=== PATIENT | female | born 1940 | race Caucasian/White ===

== ENCOUNTER 2017-10-21 14:19 | Inpatient (IN) | payer MEDICARE, OTHER ==
[2017-10-21] MEDS ORDERED: AL HYDROX/MAG HYDROX 30ML UD PO PRN (15:14)
[2017-10-21] MEDS ORDERED: ACETAMINOPHEN 325 MG TAB PO PRN (15:21)
[2017-10-21] MEDS ORDERED: BISACODYL 10 MG SUPP RC PRN (16:00)
[2017-10-21] MEDS ORDERED: ONDANSETRON 4 MG ODT TABLET SL PRN (16:00)
[2017-10-21] MEDS ORDERED: HYDROCODONE/APAP 10/325 TABLET PO PRN (16:00)
[2017-10-21] MEDS: CYCLOBENZAPRINE 10MG TABLET PO SCH ×2 (16:40→21:17)
[2017-10-21] MEDS: FUROSEMIDE 20 MG TABLET PO SCH (16:41)
[2017-10-21] MEDS: DAPTOMYCIN 500 MG/VIAL IV SCH (18:34)
[2017-10-21] MEDS: ERTAPENEM SODIUM 1 G in 0.9 % SODIUM CHLORIDE 100ML 100 ML IV SCH (18:35)
[2017-10-21] MEDS: DOCUSATE SODIUM 100 MG CAPSULE PO SCH (21:17)
[2017-10-21] MEDS: PRAMIPEXOLE DI-HCL 0.25 MG TABLET PO SCH (21:17)
[2017-10-21] MEDS: MONTELUKAST SODIUM 10MG TABLET PO SCH (21:17)
[2017-10-21] MEDS: VENLAFAXINE ER 75 MG CAPSULE PO SCH (21:17)
[2017-10-21] MEDS: SYMBICORT 160/4.5 INH SCH (22:13)
[2017-10-21] MEDS: GUAIFENESIN 600 MG TABCR PO SCH (23:20)
[2017-10-22] MEDS: HYDROCODONE/APAP 10/325 TABLET PO PRN ×2 (03:32→21:23)
[2017-10-22] MEDS: PANTOPRAZOLE SODIUM 40 MG TABLET PO SCH (06:26)
[2017-10-22] MEDS: LEVOTHYROXINE SODIUM 75 MCG TABLET PO SCH (06:26)
[2017-10-22 06:55] LABS: BASO % 0.3 % (0-6); EOS % 4.7 % (0-6); GRAN % 74.5 % (47-80); HEMATOCRIT 24.1 % (35.0-47.0); HEMOGLOBIN 7.3 gm/dl (11.6-16.0); MEAN CELL VOLUME 104.8 fl (81-97); MEAN CORPUSCULAR HEMOGLOBIN 31.7 pg (27-33); MEAN CORPUSCULAR HGB CONC 30.3 g/dl (32-36); MEAN PLATELET VOLUME 8.2 fl (7.4-10.4); MONO % 8.5 % (0-9); PLATELET COUNT 466 K/uL (130-400); RED CELL DISTRIBUTION WIDTH 13.7 % (11.5-14.5); WHITE BLOOD COUNT W/O DIFF 10.3 K/uL (4.2-12.2)
[2017-10-22 07:16] LABS: ALB/GLOB RATIO 1.5 (1.1-1.8); ALBUMIN 3.2 g/dL (4.0-5.0); ALKALINE PHOSPHATASE 89 U/L (35-104); ALT/SGPT 17 U/L (<33); AST/SGOT 16 U/L (10.0-35.0); BLOOD UREA NITROGEN 14 mg/dL (8-23); CREATININE 0.3 mg/dL (0.5-0.9); EST GLOMERULAR FILTRATION RATE > 60 mL/min; GLUCOSE,RANDOM 197 mg/dL (74-109); TOTAL PROTEIN 5.4 g/dL (6.6-8.7)
[2017-10-22 07:31] LABS: ERYTHROCYTE SEDIMENTATION RATE 75 mm/hr (0-30)
[2017-10-22] MEDS: MELOXICAM 7.5 MG TABLET PO SCH (08:04)
[2017-10-22] MEDS: PREDNISONE 5 MG TAB PO SCH (08:04)
[2017-10-22] MEDS: FUROSEMIDE 20 MG TABLET PO SCH ×2 (08:05→14:28)
--- NOTE | 2017-10-22 09:04 | History & Physical ---
History of Present Illness - Date Date of Service for History & Physical: 10/22/17 - History of Present Illness Admitting Diagnosis: Right knee infection s/p total knee replacement; deconditioning History of Present Illness: PMH: Idiopathic interstitial lung disease requiring continuous O2 and Bipap nightly, GERD, Lupus, and fibromyalgia. Hospital course: Pt admitted into Swingbed this AM. Was seen at [facility] for R knee joint infection. Conservative options for infection management failed and underwent elective revision arthroplasty with I&D, and poly-exchange revision. She tolerated the procedure well and was started on IV abx through PICC line for infection management and narcotics orally for pain control. She was tolerating PT/ OT on POD 2 and transferred to [facility] for [place]. Today: the patient has no complaints. Feels like her pain is controlled. General - Cognitive Patterns Speech: Normal Thought Process: Intact Thought Content: Normal Orientation: Oriented x3 - Communication Preferred Language?: Arabic Dean Of Education Required: No Level of Education: High School Preferred Method of Learning: Seeing, Doing Comprehension Ability: No Impairment Able to Read: Yes Able to Write: Yes Select best description of speech pattern: Clear Speech Ability to express ideas and wants: Understood Understanding verbal content: Understands - Mood and Behavior Patterns Appearance: Disheveled Mood: Normal Attitude: Cooperative Motor Activity: Calm Affect: Appropriate - Psychosocial Well-Being Usual Living Arrangement: Spouse - Physical Functioning Activity Level: Up with assist x1 Turning: With partial assist ROM Ability: Moves all extremities Assistive Devices: 2 Wheel Walker Ambulation Ability: Needs Assist Bed Mobility: Needs Assist Transfer Ability: Needs Assist Bathing Ability: Needs Assist Personal Hygiene: Needs Assist Dressing Ability: Needs Assist Eating (Feeding) Ability: Independent Toileting Ability: Needs Assist Administer Own Medication: Independent - Continence Bowel Pattern: Diarrhea Bladder Pattern: Normal - Dental Status Unable to examine: No Broken or loosely fitting full or partial dentures: No No natural teeth or tooth fragment(s) (edentulous): No Abnormal mouth tissue (ulcers, masses, oral lesions, etc.): No Obvious or likely cavity or broken natural teeth: No Inflamed or bleeding gums or loose natural teeth: No Mouth/facial pain, discomfort or difficulty chewing: No - Nutrition Screening Poor oral intake > 1 week: No Unplanned weight loss in specified time frame: No Nutrition Support via tube feedings or parenteral nutrition: No Pressure Ulcer: No Significantly underweight define as BMI <18.5 kg/m2: No Albumin <2.5mg/dL: No Persistent nausea/vomiting/diarrhea >3 days: No Difficulty chewing/swallowing/mouth sores: No Admitting Diagnosis: No Nutrition Risk Score: Low Risk Review of Systems Constitutional: Denies: Chills, Fever Eyes: Denies: Eye discharge, Eye pain, Vision change ENT: Denies: Congestion Respiratory: Reports: Wheezes. Denies: Cough, Dyspnea Cardiovascular: Reports: Edema, Murmurs (chronic). Denies: Chest pain, Palpitations Endocrine: Denies: Polyuria Gastrointestinal: Denies: Abdominal pain, Constipation, Diarrhea, Nausea, Vomiting Genitourinary: Denies: Dysuria Musculoskeletal: Reports: Arthralgia, Back pain Skin: Reports: Bruising Neurological: Reports: Vertigo (chronic). Denies: Confusion Psychiatric: Denies: Depression Hematological/Lymphatic: Reports: Anemia Past Medical History - SOCIAL HISTORY Smoking Status: Never smoker Alcohol Use: None - SURGICAL HISTORY Past Surgical History: left total knee - RESPIRATORY Hx Respiratory Disorders: Yes Hx COPD: No Hx Sleep Apnea: Yes Hx of CPAP: No (Bipap) Comment:: Idiopathic interstitial lung disease - CARDIOVASCULAR Hx Cardio Disorders: Yes Comment:: murmur - NEURO Hx Neuro Disorders: No - GI Hx GI Disorders: Yes Hx Reflux: Yes Comment:: c/o dysphagia - Hx Genitourinary Disorders: Yes Hx Bladder Problem: Yes Comment:: frequency from BID Lasix - ENDOCRINE Hx Endocrine Disorders: Yes Hx Thyroid Disease: Yes - MUSCULOSKELETAL Hx Musculoskeletal Disorders: Yes Hx Arthritis: Yes Hx Fibromyalgia: Yes - PSYCH Hx Psych Problems: Yes Hx Anxiety: Yes Hx Depression: Yes - HEMATOLOGY/ONCOLOGY Hx Hematology/Oncology Disorders: No Hx Blood Transfusions: Yes Family Medical History Any Significant Family History?: Yes Hx Cancer: Grandparents Hx Diabetes: Mother, Grandparents Hx Heart Disease: Father, Mother, Brother/Sister Hx HTN: Father, Mother, Brother/Sister H&P Meds/Allergies - Allergies Allergies: Allergies Allergy/AdvReac Type Severity Reaction Status Date / Time acetaminophen AdvReac HIVES Verified 10/22/17 07:00 [From Darvocet-N 100] adhesive AdvReac HYPERSENSIT Verified 10/21/17 17:03 IVITY cefaclor [From Ceclor] AdvReac NAUSEA AND Verified 10/21/17 17:03 VOMITING celecoxib [From Celebrex] AdvReac HIVES Verified 10/21/17 17:03 fluticasone [From Flonase] AdvReac HIVES Verified 10/21/17 17:03 hydromorphone [From Dilaudid] AdvReac HIVES Verified 10/21/17 17:03 meperidine [From Demerol] AdvReac HIVES Verified 10/21/17 17:03 nafcillin AdvReac HIVES Verified 10/21/17 17:03 propoxyphene AdvReac HIVES Verified 10/21/17 17:03 [From Darvocet-N 100] quinine AdvReac HIVES Verified 10/21/17 17:03 Sulfa (Sulfonamide AdvReac HIVES Verified 10/21/17 17:03 Antibiotics) tramadol [From Ultram] AdvReac HIVES Verified 10/21/17 17:03 - Active Medications Active Medications: Current Medications Acetaminophen (Tylenol 325mg) 650 mg PO Q6H PRN PRN Reason: PAIN - MILD (1-4) Hydrocodone Bitart/Acetaminophen (Celina 10mg/325mg) 1 each PO Q4H PRN PRN Reason: PAIN - MOD TO SEVERE (5-10) Last Admin: 10/22/17 03:32 Dose: 1 each Hydrocodone Bitart/Acetaminophen (Celina 10mg/325mg) 2 each PO Q4H PRN PRN Reason: PAIN - SEVERE (8-10) Al Hydroxide/Mg Hydroxide (Maalox) 30 ml PO Q4H PRN PRN Reason: GI UPSET Aspirin (Aspirin Chewable) 81 mg PO DAILY JOVANA Bisacodyl (Dulcolax) 10 mg RC DAILY PRN PRN Reason: CONSTIPATION Cyclobenzaprine HCl (Flexeril) 10 mg PO TID [facility] Last Admin: 10/21/17 21:17 Dose: 10 mg Daptomycin (Cubicin) 500 mg IV Q24H [facility] Stop: 10/26/17 19:01 Last Admin: 10/21/17 18:34 Dose: 500 mg Docusate Sodium (Colace) 100 mg PO BID [facility] Last Admin: 10/21/17 21:17 Dose: Not Given Enoxaparin Sodium (Lovenox) 40 mg SQ DAILY [facility] Furosemide (Lasix) 20 mg PO BIDDIUR [facility] Last Admin: 10/22/17 08:05 Dose: 20 mg Guaifenesin (Mucinex) 600 mg PO BID [facility] Last Admin: 10/21/17 23:20 Dose: Not Given Ertapenem 1 g/ Sodium Chloride 100 mls @ 100 mls/hr IV Q24H [facility] Last Infusion: 10/21/17 19:36 Dose: Infused Levothyroxine Sodium (Synthroid) 75 mcg PO DAILYTHY [facility] Last Admin: 10/22/17 06:26 Dose: 75 mcg Melatonin (Melatonin) 15 mg PO QHS PRN PRN Reason: SLEEP Meloxicam (Mobic) 15 mg PO DAILYWM [facility] Last Admin: 10/22/17 08:04 Dose: 15 mg Montelukast Sodium (Singulair) 10 mg PO QHS [facility] Last Admin: 10/21/17 21:17 Dose: 10 mg Multivitamins/Minerals (Centrum) 1 tab PO DAILY [facility] Ondansetron HCl (Zofran Odt) 4 mg SL Q6H PRN PRN Reason: NAUSEA/VOMITING Pantoprazole Sodium (Protonix) 40 mg PO DAILYAC [facility] Last Admin: 10/22/17 06:26 Dose: 40 mg Symbicort 160/4.5 2 each INH BID [facility] Last Admin: 10/21/17 22:13 Dose: 2 each Pramipexole Dihydrochloride (Pramipexole Dihydrochloride) 0.75 mg PO BID [facility] Last Admin: 10/21/17 21:17 Dose: 0.75 mg Prednisone (Prednisone 5mg) 15 mg PO DAILYWM [facility] Last Admin: 10/22/17 08:04 Dose: 15 mg Venlafaxine HCl (Effexor Xr) 75 mg PO BID [facility] Last Admin: 10/21/17 21:17 Dose: 75 mg Physical Exam - Vital Signs Vital Signs: Vital Signs - Last 24 Hrs Temp Pulse Pulse Resp BP Pulse Ox 10/22/17 08:00 97.3 F L 80 18 121/77 94 L 10/21/17 22:27 110 H 20 99 10/21/17 22:09 106 H 18 99 10/21/17 20:00 98.6 F 90 16 115/72 96 10/21/17 16:20 97.9 F 95 H 16 121/55 92 L - General General Appearance: Alert, Oriented x3, Cooperative, No acute distress - Head Head exam: Atraumatic, Normocephalic - Eye Eye exam: Normal appearance, EOMI. negative: Conjunctival injection, Periorbital swelling, Periorbital tenderness - ENT ENT exam: Mucous membranes moist, Normal external ear exam Nasal Exam: Normal inspection Mouth exam: Normal external inspection - Neck Neck exam: Normal inspection - Respiratory Respiratory exam: Wheezes (left lower lung field) - Cardiovascular Cardiovascular Exam: Regular rate, Systolic murmur (chronic, holosystolic grade 2/4 heard throughout ) Peripheral Pulses: 2+: Radial (R), Radial (L) - GI/Abdominal GI/Abdominal exam: Soft, Normal bowel sounds, Hernia (chronic). negative: Distended, Hypoactive bowel sounds, Tenderness - Rectal Rectal exam: Deferred - exam: Deferred - Extremities Extremities exam: Pedal edema (R sided edema of the entire LE 3+. Wrapped to compress. Wound intact and dry. Ecchymosis present on the inner thigh and around the incision. ), Tenderness (mild tenderness when assessing for LE edema on the R) - Back Back exam: Reports: Other (ecchymosis in the central lower back. ) - Neurological Neurological exam: Alert, Oriented X3 - Psychiatric Psychiatric exam: Normal mood - Skin Type of lesion: Other (ecchymosis seen on the hands and arms b/l) H&P Results - Labs Result Diagrams: 10/22/17 06:47 10/22/17 06:47 Labs Last 24 Hours: Laboratory Results - last 24 hr 10/22/17 10/22/17 06:47 06:47 WBC 10.3 RBC 2.30 L Hgb 7.3 L Hct 24.1 L MCV 104.8 H MCH 31.7 MCHC 30.3 L RDW 13.7 Plt Count 466 H MPV 8.2 Gran % 74.5 Lymphocytes % 12.0 L Monocytes % 8.5 Eosinophils % 4.7 Basophils % 0.3 ESR 75 H Sodium 139 Potassium 4.1 Chloride 90 L Carbon Dioxide 42.0 H Anion Gap 7.0 BUN 14 Creatinine 0.3 L Estimated GFR > 60 Random Glucose 197 H Calcium 8.7 L Total Bilirubin 0.20 AST 16 ALT 17 Alkaline Phosphatase 89 Total Protein 5.4 L Albumin 3.2 L Globulin 2.2 Albumin/Globulin Ratio 1.5 Discharge Potential - Discharge Needs Community Services Used Prior to Admission: Oxygen Therapy, Transportation, Path[facility] to Better [facility] Patient Discharge Plan Description: Return Home Community Services Needed at Discharge: Oxygen Therapy, Transportation, [facility]ways to Better Health Plan - Swing Bed Certification Initial Certification Due: 10/21/17 14 Day Re-Cert Due: 11/04/17 44 Day Re-Cert Due: 12/04/17 74 Day Re-Cert Due: 01/03/18 - Detailed Diagnosis and Plan (1) Physical deconditioning Plan: PT/OT on board. Continue per recs and as tolerated. Current Visit: Yes Status: Acute Base Code: R53.81 - OTHER MALAISE (2) Infection of total right knee replacement Plan: - Continue abx as prescribed. Will monitor for worsening of infection. Pain control as prescribed. - Hb 7.3 Will monitor for need of transfusion. Current Visit: Yes Status: Acute Base Code: T84.53XA - INFECT/INFLM REACTION DUE TO INTERNAL R KNEE PROSTH, INIT (3) Idiopathic interstitial pulmonary disease Plan: - CO2 elevated today. - Pt states that she used her Bipap last night. - Her O2 NC during the day has been 2-3L and O2 sats >96%, this is likely decreasing her respiratory drive and she is retaining CO2. - Decreased O2 to 1L and keep saturation between 88-92% - Will repeat CO2 in AM and monitor closely. - No signs of infection or CXR warranted at this time. - Dr. Buchanan is her business dean will contact as needed. - Resp on board. Albuteral and Symbicort as prescribed. Prednisone as prescribed. 10/22/17 10:09 10/22/17 10:10 Current Visit: Yes Status: Acute Base Code: J84.9 - INTERSTITIAL PULMONARY DISEASE, UNSPECIFIED (4) GERD with esophagitis Plan: - Protonix as prescribed. Current Visit: Yes Status: Acute Base Code: K21.0 - GASTRO-ESOPHAGEAL REFLUX DISEASE WITH ESOPHAGITIS - Disposition Home in 4 weeks if tolerated.
[2017-10-22] MEDS ORDERED: ALBUTEROL HFA 8 GM INHALER INH PRN (09:15)
[2017-10-22] MEDS: MULTIVITAMINS/MINERALS TABLET PO SCH (09:20)
[2017-10-22] MEDS: ASPIRIN 81 MG CHEWABLE TABLET PO SCH (09:20)
[2017-10-22] MEDS: DOCUSATE SODIUM 100 MG CAPSULE PO SCH ×2 (09:20→21:20)
[2017-10-22] MEDS: VENLAFAXINE ER 75 MG CAPSULE PO SCH ×2 (09:20→21:20)
[2017-10-22] MEDS: CYCLOBENZAPRINE 10MG TABLET PO SCH ×3 (09:21→21:20)
[2017-10-22] MEDS: GUAIFENESIN 600 MG TABCR PO SCH ×2 (09:21→21:20)
[2017-10-22] MEDS: ENOXAPARIN 40 MG/0.4 ML SYR SQ SCH (09:21)
[2017-10-22] MEDS: PRAMIPEXOLE DI-HCL 0.25 MG TABLET PO SCH ×2 (09:22→21:20)
[2017-10-22] MEDS: UMECLIDINIUM BROMIDE (INCRUSE) 62.5MCG IH SCH (09:47)
[2017-10-22] MEDS: SYMBICORT 160/4.5 INH SCH ×2 (09:47→21:50)
[2017-10-22] MEDS ORDERED: BREO (FLUTICASONE/VILANTEROL) 200MCG/25MCG INHALER INH SCH (10:00)
--- NOTE | 2017-10-22 11:06 | Rehab Evaluation ---
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 Ordered Treatment: OT Evaluate and Treat Status: Initial Evaluation Past Medical/Surgical Hx: PAST MEDICAL/SURGICAL HISTORY Past Surgical History left total knee PMH - Respiratory Hx Respiratory Disorders Yes Hx Chronic Obstructive No Pulmonary Disease (COPD) Hx Sleep Apnea Yes Hx of CPAP No: Bipap Comment: Idiopathic interstitial lung disease PMH - Cardiovascular Hx Cardiovascular Disorders Yes Hx Rheumatic Fever Yes Hx Heart Murmur Yes Comment: murmur PMH - Neuro Hx Neurological Disorders No PMH - GI Hx Gastrointestinal Disorders Yes Hx Gastroesophageal Reflux Yes Comment: c/o dysphagia PMH - Hx Genitourinary Disorders Yes Hx Bladder Problem Yes Comment: frequency from BID Lasix PMH - Endocrine Hx Endocrine Disorders Yes Hx Thyroid Disease Yes PMH - Musculoskeletal Hx Musculoskeletal Disorders Yes Hx Arthritis Yes Hx Fibromyalgia Yes PMH - Psych Hx Psychiatric Problems Yes Hx Anxiety Yes Hx Depression Yes PMH - Hematology/Oncology Hx Hematology/Oncology No Disorders Premorbid Status: Detail (Pt has been dealing with this since 2007, with multiple sx's. PLOF is prior to most recent sx and hospital stay, but after original level of functioning. 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 Pt. is modified Ind. with self-care tasks, with the exception of supervising tub t/f for safety. She has a photo equipment technician , shoe horn, and bathing tool. Pt. no longer drives; assists with transportation needs.) Social History: Detail (Pt. lives with her in a 1-story house with basement. Pt. does not use the basement, but it contains laundry facilities so takes care of laundry. House has a ramp entry. Pt. primarily uses w/c for in-home mobility at this time, but would prefer to use walker instead. Bathroom has a tub/shower with grab bar, hand held shower head, and shower chair. Toilet is raised with attached handles bilaterally.) Precautions: [place], Fall, Other (RLE WBAT, SOB) - Time With Patient Total Time Spent With Patient (Min): 30 Treatment Procedures: Detail (OT Eval Low.) Subjective Information - Subjective Information Per Patient (R hand dominant. Significant hx of multiple injuries/surgeries ( has a list that he can bring later), including L shoulder replacement, R shattered shoulder, and fibromyalgia.) Objective Data - Pain Pain Present: Yes (09/10 RLE with activity. Generalized burning pain throughout body d/t fibromyalgia.) - Mental Status Patient Orientation: Oriented x3 - Visual Perception Appears within normal limits for therapeutic activities - ROM Within normal limits (BUE WFL all planes. Lacking some motion in bilateral shoulder flex, but pt. was able to functionally reach up, behind head, and back. ) - Strength/Tone Within normal limits (BUE shd flex, abd, biceps, triceps 4+/5 MMT. Strength feels equal bilaterally. May have decreased rn anesthetist strength d/t sensation.) - Coordination Deficit (Significant difficulty w/ FMC d/t decreased sensation. Pt. is unable to put in earrings, open water bottles, and has difficulty with clothing fasteners.) - Bed Mobility Independent (sit to supine with bed flat and no rails) - Transfers Needs Assist (CGA-Min assist sit<>stand t/f's) - Balance Balance Sitting: Fair (Pt. leans significantly posteriorly when reaching up, which greatly increases fall risk.) Balance Standing: Fair - Sensation Deficit (Diminished light touch bilateral median nerve pattern on fingertips. Pt. also named several false positives which may be d/t fibromyalgia and/or decreased sense of proprioception. Pt. reported hand numbness sometimes worsens with use of wheelchair. Educ. was provided in awareness of safety precautions d/ t decreased sensation. Pt. verbalized understanding.) - ADL's/IADL's Detail (ADL's not tested at this time d/t pt's high pain, low endurance, and SOB. Pt. does have clothes available to dress with, and is an early riser. Pt. has very low activity tolerance, and became severely SOB after walking a few steps from arm chair to bed with use of 2 L oxygen. Pt. Ind. initiated use of pursed lip breathing techniques. Pt. reported she must walk a long distance to the bathroom from her bedroom or to the kitchen when at home.) Therapy Assessment - Therapy Assessment Detail (Pt. would benefit from skilled OT services to maximize independence and safety with ADL's.) Patient Education - Patient Education Teaching Topic: Other (safety d/t decreased hand sensation) Response: Verbalize Understanding Teaching Method: Discussion Teaching Recipient: Patient Barriers To Learning: None Problem List - Problem List Occupational Therapy Problem List: Detail (SOB, decreased activity tolerance/ endurance, decreased safety and Ind. with ADL's, impaired FMC and sensation in Bilateral hands) Goals - Goals Occupational Therapy Goals: 1) Pt. will participate in dressing and shower evaluation to further assess needs. 2) Pt. will improve activity tolerance to complete typical morning ADL routine (i.e. participate for 10 minutes with seated rest breaks as needed and use of oxygen). 3) Pt. will dress TB modified Ind. 4) Pt. will toilet with modified Ind. 5) Pt. will safely complete a tub t /f with CGA as needed by caregiver (i.e. ). 6) Pt. will demo. awareness of adaptations or modifications to prevent increased hand numbness with use of w /c or walker. Prognosis - Prognosis Good (For written goals with pt. participation.) Plan - Plan Occupational Therapy Plan: Pt. will be seen 2-4x's/week Mon-Fri during rehab business hours until pt. has met OT goals and/or is d/c from the hospital.
--- NOTE | 2017-10-22 11:35 | Rehab Evaluation ---
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 Ordered Treatment: PT Evaluate and Treat Status: Initial Evaluation Past Medical/Surgical Hx: PAST MEDICAL/SURGICAL HISTORY Past Surgical History left total knee PMH - Respiratory Hx Respiratory Disorders Yes Hx Chronic Obstructive No Pulmonary Disease (COPD) Hx Sleep Apnea Yes Hx of CPAP No: Bipap Comment: Idiopathic interstitial lung disease PMH - Cardiovascular Hx Cardiovascular Disorders Yes Hx Rheumatic Fever Yes Hx Heart Murmur Yes Comment: murmur PMH - Neuro Hx Neurological Disorders No PMH - GI Hx Gastrointestinal Disorders Yes Hx Gastroesophageal Reflux Yes Comment: c/o dysphagia PMH - Hx Genitourinary Disorders Yes Hx Bladder Problem Yes Comment: frequency from BID Lasix PMH - Endocrine Hx Endocrine Disorders Yes Hx Thyroid Disease Yes PMH - Musculoskeletal Hx Musculoskeletal Disorders Yes Hx Arthritis Yes Hx Fibromyalgia Yes PMH - Psych Hx Psychiatric Problems Yes Hx Anxiety Yes Hx Depression Yes PMH - Hematology/Oncology Hx Hematology/Oncology No Disorders Premorbid Status: Detail (Pt has been dealing with this since 2007, with multiple sx's. PLOF is prior to most recent sx and hospital stay, but after original level of functioning. Pt. is responsible for shared nib finisher as she is able, such as: occasional basic meal prep, cleaning bathroom, replacing waste basket bags, etc. Pt. is modified Ind. with self-care tasks, with the exception of supervising tub t/f for safety. She has a digital asset coordinator , shoe horn, and bathing tool. Pt. no longer drives; assists with transportation needs.) Social History: Detail (Pt. lives with her in a 1-story house with basement. Pt. does not use the basement, but it contains laundry facilities so takes care of laundry. House has a ramp entry. Pt. primarily uses w/c for in-home mobility at this time, but would prefer to use walker instead. Bathroom has a tub/shower with grab bar, hand held shower head, and shower chair. Toilet is raised with attached handles bilaterally.) Precautions: [place], Fall, Other (RLE WBAT, SOB, Contace isolation) - Time With Patient Total Time Spent With Patient (Min): 30 Treatment Procedures: Detail (Initial Evaluation) Subjective Information - Subjective Information Per Patient (The patient has complaints of R knee pain which at rest she rated as 3 to 4 using 0-10 pain scale. She also stated she has fibromylagia pain "all over" at times which she characterizes as a burning type of pain.) Objective Data - Mental Status Patient Orientation: Oriented x3 - Visual Perception Appears within normal limits for therapeutic activities - ROM Not within normal limits (The patient's LE AROM was WFL except for R knee flexion 85 degrees ( limitations may be due to dressing) extension was not assessed due to dressing. Refer to OT not for AROM assessment.) - Strength/Tone Not within normal limits ( The patient's L LE strength was 5/5, R LE strength was hip musculature 4+/5,ankle musculature 4+/5, knee extensors 3/5 ( pain with resistance), knee flexors 4-/5. Refer to OT note for evaluation of UE strength.) - Bed Mobility Independent (The patient was independent with supine to and from sit transfer and scooting up in bed.) - Transfers Independent (The patient required CG/minimal PA with sit to stand and was independent with stand to sit.) - Balance Balance Sitting: Good Balance Standing: Fair (The patient stood with WBAT on the R LE and required support of walker) - Gait Detail (The patient ambulated with 2 wheeled walker with CG for safety WBAT on the R LE and 2L of O2 , 8 feet x 1. The patient experienced shortness of breath after ambulated. The patient used proper pursed lip breathing techniques. ) Problem List - Problem List Physical Therapy Problem List: Detail (1)Decreased R LE strength 2) R LE pain which limited patient's functional ability 3) Shortness of breath with physical activity 4)The patient will able with assistive device a distance of 50 to 100 feet independently with minimal shortness of breath 5) The patient will be able to complete a car transfer into van with assist of .) Prognosis - Prognosis Moderate Plan - Plan Physical Therapy Plan: PT 1-2 times a day M-F for gait training, transfer training, LE strengthening and endurance exercises.
--- NOTE | 2017-10-22 11:53 | Physician Addendum ---
Addendum (Physician) Spoke with Pt's candlemaker Dr. Buchanan. He states that it doesn't surprise him that the pt's CO2 is elevated that high given her hx of severe interstitial lung disease and states that likely it will progressively get worse. He states that she refused medical treatment for the condition and is unsure regarding her compliance with her bipap at night and her daytime O2. Will continue to monitor.
[2017-10-22] MEDS: DAPTOMYCIN 500 MG/VIAL IV SCH (18:30)
[2017-10-22] MEDS: ERTAPENEM SODIUM 1 G in 0.9 % SODIUM CHLORIDE 100ML 100 ML IV SCH (20:05)
[2017-10-22] MEDS: MONTELUKAST SODIUM 10MG TABLET PO SCH (21:21)
[2017-10-22] MEDS: MELATONIN 5 MG TABLET PO PRN (21:22)
[2017-10-23] MEDS: LEVOTHYROXINE SODIUM 75 MCG TABLET PO SCH (06:00)
[2017-10-23] MEDS: PANTOPRAZOLE SODIUM 40 MG TABLET PO SCH (06:00)
[2017-10-23 07:12] LABS: ALB/GLOB RATIO 1.4 (1.1-1.8); ALBUMIN 3.7 g/dL (4.0-5.0); ALKALINE PHOSPHATASE 105 U/L (35-104); ALT/SGPT 20 U/L (<33); AST/SGOT 18 U/L (10.0-35.0); BLOOD UREA NITROGEN 19 mg/dL (8-23); CREATININE 0.3 mg/dL (0.5-0.9); EST GLOMERULAR FILTRATION RATE > 60 mL/min; GLUCOSE,RANDOM 200 mg/dL (74-109); TOTAL PROTEIN 6.4 g/dL (6.6-8.7)
[2017-10-23] MEDS: MELOXICAM 7.5 MG TABLET PO SCH (08:16)
[2017-10-23] MEDS: PREDNISONE 5 MG TAB PO SCH (08:16)
[2017-10-23] MEDS: FUROSEMIDE 20 MG TABLET PO SCH ×2 (08:16→14:43)
[2017-10-23] MEDS: ENOXAPARIN 40 MG/0.4 ML SYR SQ SCH (09:21)
[2017-10-23] MEDS: ASPIRIN 81 MG CHEWABLE TABLET PO SCH (09:21)
[2017-10-23] MEDS: DOCUSATE SODIUM 100 MG CAPSULE PO SCH ×2 (09:21→21:27)
[2017-10-23] MEDS: CYCLOBENZAPRINE 10MG TABLET PO SCH ×3 (09:21→21:28)
[2017-10-23] MEDS: MULTIVITAMINS/MINERALS TABLET PO SCH (09:21)
[2017-10-23] MEDS: GUAIFENESIN 600 MG TABCR PO SCH ×2 (09:21→21:28)
[2017-10-23] MEDS: VENLAFAXINE ER 75 MG CAPSULE PO SCH ×2 (09:22→21:27)
[2017-10-23] MEDS: PRAMIPEXOLE DI-HCL 0.25 MG TABLET PO SCH ×2 (09:22→21:28)
[2017-10-23] MEDS: UMECLIDINIUM BROMIDE (INCRUSE) 62.5MCG IH SCH (10:12)
[2017-10-23] MEDS: PATIENT OWN MED: INH PRN ×2 (10:14→22:01)
[2017-10-23] MEDS: SYMBICORT 160/4.5 INH SCH ×2 (10:14→22:00)
[2017-10-23] MEDS: HYDROCODONE/APAP 10/325 TABLET PO PRN ×2 (10:16→23:58)
--- NOTE | 2017-10-23 11:04 | Occupational Therapy Tx Note ---
Occupational Therapy Tx Note - Treatment Note Tolerated: Good Total Time Spent With Patient: 45 (ADL) Occupational Therapy Treatment Note: Detail (S: Pt awake and reports having lots of dreams last night. O: Pt using 2 liters of oxygen. Supine to sit Indly. Pt able to doff gown Indly and don bra, shirt, shorts, socks and shoes Indly using modified LE dressing techniques and with multiple rest breaks due to shortness of breath. She was Ind with pursed lip breathing and took appropriate rest breaks. Pt amb to chair with 2 wheeled walker Indly. Pt completed grooming/ hygiene tasks in chair with set up. A: Pt very easily fatigued with dressing activity, Ind with pursed lip breathing techniques.) Occupational Therapy Problem List: Detail (SOB, decreased activity tolerance/ endurance, decreased safety and Ind. with ADL's, impaired FMC and sensation in Bilateral hands) Occupational Therapy Goals: 1) Pt. will participate in dressing and shower evaluation to further assess needs. 2) Pt. will improve activity tolerance to complete typical morning ADL routine (i.e. participate for 10 minutes with seated rest breaks as needed and use of oxygen). 3) Pt. will dress TB modified Ind. 4) Pt. will toilet with modified Ind. 5) Pt. will safely complete a tub t /f with CGA as needed by caregiver (i.e. ). 6) Pt. will demo. awareness of adaptations or modifications to prevent increased hand numbness with use of w /c or walker. Prognosis: Good Occupational Therapy Plan: Pt. will be seen 2-4x's/week Mon-Fri during rehab business hours until pt. has met OT goals and/or is d/c from the hospital.
--- NOTE | 2017-10-23 14:35 | Physical Therapy Tx Note ---
Physical Therapy Tx Note - Treatment Note Tolerated: Good Total Time Spent With Patient: 30 Physical Therapy Tx Note: Detail (Patient was dressed and in chair upon arrival. Patient had no complaints of pain and transfered sit to stand with SBA. Patient was given 3L of O2 with a portable tank while ambulating 25' with a front wheeled walker and SBA for safety. Patient performed 1 set of 8 repitions of hip marches, LAQ, hip add/abd, and glut sets. Patient tolerated activity well, with minimal shortness of breath during seated exercises. Patient was left seated in chair with call light in reach.) Physical Therapy Problem List: Detail (1)Decreased R LE strength 2) R LE pain which limited patient's functional ability 3) Shortness of breath with physical activity) Physical Therapy Goals: 1) The patient will ambulate with assistive device a distance of 50 to 100 feet independently with minimal shortness of breath. 2) The patient will be able to complete a car transfer into van with assist of . 3) Patient will be IND with HEP. 4) Increase LE muscle strength 1/3 of a grade to increase stability of gait. Prognosis: Good Physical Therapy Plan: PT 1-2 times a day M-F for gait training, transfer training, LE strengthening and endurance exercises.
[2017-10-23] MEDS: DAPTOMYCIN 500 MG/VIAL IV SCH (20:12)
[2017-10-23] MEDS: ERTAPENEM SODIUM 1 G in 0.9 % SODIUM CHLORIDE 100ML 100 ML IV SCH (20:17)
[2017-10-23] MEDS: MONTELUKAST SODIUM 10MG TABLET PO SCH (21:28)
[2017-10-23] MEDS: MELATONIN 5 MG TABLET PO PRN (23:59)
[2017-10-24] MEDS: PANTOPRAZOLE SODIUM 40 MG TABLET PO SCH (06:25)
[2017-10-24] MEDS: LEVOTHYROXINE SODIUM 75 MCG TABLET PO SCH (06:25)
[2017-10-24] MEDS: HYDROCODONE/APAP 10/325 TABLET PO PRN ×2 (06:25→13:26)
[2017-10-24] MEDS: PATIENT OWN MED: INH PRN ×2 (09:30→21:47)
[2017-10-24] MEDS: UMECLIDINIUM BROMIDE (INCRUSE) 62.5MCG IH SCH (09:30)
[2017-10-24] MEDS: SYMBICORT 160/4.5 INH SCH ×2 (09:31→21:46)
[2017-10-24] MEDS: MULTIVITAMINS/MINERALS TABLET PO SCH (10:46)
[2017-10-24] MEDS: PRAMIPEXOLE DI-HCL 0.25 MG TABLET PO SCH ×2 (10:46→21:20)
[2017-10-24] MEDS: VENLAFAXINE ER 75 MG CAPSULE PO SCH ×2 (10:47→21:20)
[2017-10-24] MEDS: DOCUSATE SODIUM 100 MG CAPSULE PO SCH ×2 (10:47→21:21)
[2017-10-24] MEDS: CYCLOBENZAPRINE 10MG TABLET PO SCH ×3 (10:47→21:20)
[2017-10-24] MEDS: GUAIFENESIN 600 MG TABCR PO SCH ×2 (10:47→21:23)
[2017-10-24] MEDS: ENOXAPARIN 40 MG/0.4 ML SYR SQ SCH (10:48)
[2017-10-24] MEDS: FUROSEMIDE 20 MG TABLET PO SCH ×2 (10:50→17:06)
[2017-10-24] MEDS: PREDNISONE 5 MG TAB PO SCH (10:56)
[2017-10-24] MEDS: MELOXICAM 7.5 MG TABLET PO SCH (10:56)
--- NOTE | 2017-10-24 11:16 | Physical Therapy Tx Note ---
Physical Therapy Tx Note - Treatment Note Tolerated: Good Total Time Spent With Patient: 40 Physical Therapy Tx Note: Detail (Pt sitting up in recliner upon arrival, drowsy , but cooperative for therapy. Sit/stand transfer to front wheeled walker w/CGA , ambulated to bathroom WBAT R LE w/front wheeled walker w/CGA, transferred to commode w/CGA. Managed clothing w/SBA; independent w/self-care and hygiene after set-up. CGA for pulling up pants. Ambulated back to recliner for seated LE exercises: 10 each B of marching, knee extension (8 on R), isometric knee flexion, heel slides, ankle pumps, isometric hip abduction, isometric hip adduction w/pillow. Independently positioned in recliner, assisted w/leg elevation. Left up in recliner w/bedside table and call light in reach. Nrsg notified of loose beth wrap on R LE.) Physical Therapy Problem List: Detail (1)Decreased R LE strength 2) R LE pain which limited patient's functional ability 3) Shortness of breath with physical activity) Physical Therapy Goals: 1) The patient will ambulate with assistive device a distance of 50 to 100 feet independently with minimal shortness of breath. 2) The patient will be able to complete a car transfer into van with assist of . 3) Patient will be IND with HEP. 4) Increase LE muscle strength 1/3 of a grade to increase stability of gait. Prognosis: Good Physical Therapy Plan: PT 1-2 times a day M-F for gait training, transfer training, LE strengthening and endurance exercises.
[2017-10-24] MEDS: ASPIRIN 81 MG CHEWABLE TABLET PO SCH (11:17)
--- NOTE | 2017-10-24 14:35 | Physical Therapy Tx Note ---
Physical Therapy Tx Note - Treatment Note Tolerated: Good Total Time Spent With Patient: 30 Physical Therapy Tx Note: Detail (Pt up in recliner upon arrival, with nrsg present. Had just returned from bathroom, knee felt weak, almost buckled, but did not fall. Nrsg changed dressing, beth wrap. Pt states pain in R LE is 6/10 at beginning of session. Pt performed 10 reps each of marching, knee extension , isometric knee flexion, isometric hip adduction, isometric hip abduction, ankle pumps. Nrsg communicating w/Dr. Snell regarding discoloration and edema of R LE. Pt assisted to recline in recliner, padded R armrest w/blanket where pt leans; call light and bedside table in reach.) Physical Therapy Problem List: Detail (1)Decreased R LE strength 2) R LE pain which limited patient's functional ability 3) Shortness of breath with physical activity) Physical Therapy Goals: 1) The patient will ambulate with assistive device a distance of 50 to 100 feet independently with minimal shortness of breath. 2) The patient will be able to complete a car transfer into van with assist of . 3) Patient will be IND with HEP. 4) Increase LE muscle strength 1/3 of a grade to increase stability of gait. Prognosis: Good Physical Therapy Plan: PT 1-2 times a day M-F for gait training, transfer training, LE strengthening and endurance exercises.
[2017-10-24] MEDS: MONTELUKAST SODIUM 10MG TABLET PO SCH (21:20)
[2017-10-24] MEDS: ERTAPENEM SODIUM 1 G in 0.9 % SODIUM CHLORIDE 100ML 100 ML IV SCH (21:22)
[2017-10-24] MEDS: DAPTOMYCIN 500 MG/VIAL IV SCH (21:22)
[2017-10-25] MEDS: HYDROCODONE/APAP 10/325 TABLET PO PRN (00:24)
[2017-10-25] MEDS: PANTOPRAZOLE SODIUM 40 MG TABLET PO SCH (06:51)
[2017-10-25] MEDS: LEVOTHYROXINE SODIUM 75 MCG TABLET PO SCH (06:51)
[2017-10-25] MEDS: LOPERAMIDE 2 MG CAPSULE PO PRN (06:51)
[2017-10-25] MEDS: PREDNISONE 5 MG TAB PO SCH (08:38)
[2017-10-25] MEDS: FUROSEMIDE 20 MG TABLET PO SCH ×2 (08:38→15:52)
[2017-10-25] MEDS: MELOXICAM 7.5 MG TABLET PO SCH (08:38)
--- NOTE | 2017-10-25 10:00 | Occupational Therapy Tx Note ---
Occupational Therapy Tx Note - Treatment Note Tolerated: Good Total Time Spent With Patient: 50 (ADL) Occupational Therapy Treatment Note: Detail (S: Pt resting in bed, ready for OT. O: Supine to sit Indly. Sit to stand and amb to commode with 2 wheeled walker Indly. Pt completed toileting with verbal cues for modified technique. Pt amb to sink to complete sponge bathing in sitting. Pt doffed gown and briefs Indly and able to complete bathing of upper body, face, emanuel area, buttocks and upper legs in sitting and standing with several short rest breaks due to shortness of breath. Pt donned bra, shirt, briefs and shorts Indly with rest breaks as needed for pursed lip breathing. Pt completed grooming and hygiene at sink with set up. Pt amb back to chair with 2 wheeled walker Indly. A: Pt continues with moderate shortness of breath with ADLs although she is able to utilize pursed lip breathing appropriately.) Occupational Therapy Problem List: Detail (SOB, decreased activity tolerance/ endurance, decreased safety and Ind. with ADL's, impaired FMC and sensation in Bilateral hands) Occupational Therapy Goals: 1) Pt. will participate in dressing and shower evaluation to further assess needs. 2) Pt. will improve activity tolerance to complete typical morning ADL routine (i.e. participate for 10 minutes with seated rest breaks as needed and use of oxygen). 3) Pt. will dress TB modified Ind. 4) Pt. will toilet with modified Ind. 5) Pt. will safely complete a tub t /f with CGA as needed by caregiver (i.e. ). 6) Pt. will demo. awareness of adaptations or modifications to prevent increased hand numbness with use of w /c or walker. Prognosis: Good Occupational Therapy Plan: Pt. will be seen 2-4x's/week Mon-Fri during rehab business hours until pt. has met OT goals and/or is d/c from the hospital.
[2017-10-25] MEDS: ASPIRIN 81 MG CHEWABLE TABLET PO SCH (10:15)
[2017-10-25] MEDS: MULTIVITAMINS/MINERALS TABLET PO SCH (10:15)
[2017-10-25] MEDS: VENLAFAXINE ER 75 MG CAPSULE PO SCH ×2 (10:16→21:54)
[2017-10-25] MEDS: CYCLOBENZAPRINE 10MG TABLET PO SCH ×3 (10:16→21:54)
[2017-10-25] MEDS: DOCUSATE SODIUM 100 MG CAPSULE PO SCH ×2 (10:16→21:54)
[2017-10-25] MEDS: GUAIFENESIN 600 MG TABCR PO SCH ×2 (10:17→21:54)
[2017-10-25] MEDS: ENOXAPARIN 40 MG/0.4 ML SYR SQ SCH (10:17)
[2017-10-25] MEDS: PRAMIPEXOLE DI-HCL 0.25 MG TABLET PO SCH (10:22)
[2017-10-25 10:55] LABS: HEMATOCRIT 24.8 % (35.0-47.0); HEMOGLOBIN 7.4 gm/dl (11.6-16.0); MEAN CELL VOLUME 107.4 fl (81-97); MEAN CORPUSCULAR HGB CONC 29.8 g/dl (32-36); MEAN PLATELET VOLUME 8.8 fl (7.4-10.4); PLATELET COUNT 536 K/uL (130-400); RED BLOOD COUNT 2.31 M/uL (3.80-5.40); RED CELL DISTRIBUTION WIDTH 14.4 % (11.5-14.5); WHITE BLOOD COUNT W/O DIFF 15.7 K/uL (4.2-12.2)
--- NOTE | 2017-10-25 12:19 | Physician Progress Note ---
Subjective - Date Date of Progress Note: 10/25/17 - Admitting Diagnosis Diagnosis: Right knee infection s/p total knee replacement; deconditioning - Subjective Nursing Care Plan Problem List Activity Intolerance (Swing Bed) Start: 10/21/17 16: 14 Freq: Status: Active Protocol: Created 10/21/17 16:14 [facility] (Rec: 10/21/17 16:14 [facility] [id number]) Altered Thought Process (Fall Risk) Start: 10/21/17 21: 23 Freq: Status: Active Protocol: Created 10/21/17 21:23 [facility] (Rec: 10/21/17 21:23 [facility] [id number]) Impaired Mobility (Fall Risk) Start: 10/21/17 21: 23 Freq: Status: Active Protocol: Created 10/21/17 21:23 [facility] (Rec: 10/21/17 21:23 [facility] [id number]) Knowledge Deficit (Swing Bed) Start: 10/21/17 16: 14 Freq: Status: Active Protocol: Created 10/21/17 16:14 [facility] (Rec: 10/21/17 16:14 [facility] [id number]) Pain (Swing Bed) Start: 10/21/17 16: 14 Freq: Status: Active Protocol: Created 10/21/17 16:14 [facility] (Rec: 10/21/17 16:14 [facility] [id number]) Risk for Injury (Fall Risk) Start: 10/21/17 21: 23 Freq: Status: Active Protocol: Created 10/21/17 21:23 [facility] (Rec: 10/21/17 21:23 A [id number]) Subjective: The patient is alert and oriented but appears more somnolent than yesterday. She complains of right leg pain but does not have shortness of breath and is afebrile with temp 98.1. General - Cognitive Patterns Speech: Soft Thought Process: Intact Thought Content: Normal - Communication Select best description of speech pattern: Clear Speech Ability to express ideas and wants: Understood Understanding verbal content: Understands - Mood and Behavior Patterns Appearance: Disheveled Mood: Normal Attitude: Cooperative Motor Activity: Calm Affect: Appropriate Hallucinations: Denies - Physical Functioning Activity Level: Up with assist x1 Turning: Self ad anupama ROM Ability: Moves all extremities Assistive Devices: 2 Wheel Walker Ambulation Ability: Independent Bed Mobility: Independent Transfer Ability: Independent Bathing Ability: Independent Personal Hygiene: Independent Dressing Ability: Independent Eating (Feeding) Ability: Independent Toileting Ability: Independent Administer Own Medication: Independent - Continence Bowel Pattern: Normal for Patient Bladder Pattern: Normal Meds/Allergies - Allergies Allergies Allergy/AdvReac Type Severity Reaction Status Date / Time acetaminophen AdvReac HIVES Verified 10/22/17 07:00 [From Darvocet-N 100] adhesive AdvReac HYPERSENSIT Verified 10/21/17 17:03 IVITY cefaclor [From Ceclor] AdvReac NAUSEA AND Verified 10/21/17 17:03 VOMITING celecoxib [From Celebrex] AdvReac HIVES Verified 10/21/17 17:03 fluticasone [From Flonase] AdvReac HIVES Verified 10/21/17 17:03 hydromorphone [From Dilaudid] AdvReac HIVES Verified 10/21/17 17:03 meperidine [From Demerol] AdvReac HIVES Verified 10/21/17 17:03 nafcillin AdvReac HIVES Verified 10/21/17 17:03 propoxyphene AdvReac HIVES Verified 10/21/17 17:03 [From Darvocet-N 100] quinine AdvReac HIVES Verified 10/21/17 17:03 Sulfa (Sulfonamide AdvReac HIVES Verified 10/21/17 17:03 Antibiotics) tramadol [From Ultram] AdvReac HIVES Verified 10/21/17 17:03 - Active Medications Current Medications Acetaminophen (Tylenol 325mg) 650 mg PO Q6H PRN PRN Reason: PAIN - MILD (1-4) Hydrocodone Bitart/Acetaminophen ([place] 10mg/325mg) 1 each PO Q4H PRN PRN Reason: PAIN - MOD TO SEVERE (5-10) Last Admin: 10/24/17 06:25 Dose: 1 each Hydrocodone Bitart/Acetaminophen ([place] 10mg/325mg) 2 each PO Q4H PRN PRN Reason: PAIN - SEVERE (8-10) Last Admin: 10/25/17 00:24 Dose: 2 each Al Hydroxide/Mg Hydroxide (Maalox) 30 ml PO Q4H PRN PRN Reason: GI UPSET Aspirin (Aspirin Chewable) 81 mg PO DAILY [facility] Last Admin: 10/25/17 10:15 Dose: 81 mg Bisacodyl (Dulcolax) 10 mg RC DAILY PRN PRN Reason: CONSTIPATION Cyclobenzaprine HCl (Flexeril) 10 mg PO TID [facility] Last Admin: 10/25/17 10:16 Dose: 10 mg Daptomycin (Cubicin) 500 mg IV QHS [facility] Stop: 10/26/17 23:00 Docusate Sodium (Colace) 100 mg PO BID [facility] Last Admin: 10/25/17 10:16 Dose: Not Given Enoxaparin Sodium (Lovenox) 40 mg SQ DAILY [facility] Last Admin: 10/25/17 10:17 Dose: 40 mg Furosemide (Lasix) 20 mg PO 0800,1400 [facility] Last Admin: 10/25/17 08:38 Dose: 20 mg Guaifenesin (Mucinex) 600 mg PO BID [facility] Last Admin: 10/25/17 10:17 Dose: 600 mg Ertapenem 1 g/ Sodium Chloride 100 mls @ 100 mls/hr IV QHS [facility] Levothyroxine Sodium (Synthroid) 75 mcg PO DAILYTHY [facility] Last Admin: 10/25/17 06:51 Dose: 75 mcg Loperamide HCl (Immodium) 2 mg PO Q4H PRN PRN Reason: DIARRHEA Last Admin: 10/25/17 06:51 Dose: 2 mg Melatonin (Melatonin) 15 mg PO QHS PRN PRN Reason: SLEEP Last Admin: 10/23/17 23:59 Dose: 15 mg Meloxicam (Mobic) 15 mg PO DAILYWM [facility] Last Admin: 10/25/17 08:38 Dose: 15 mg Montelukast Sodium (Singulair) 10 mg PO QHS [facility] Last Admin: 10/24/17 21:20 Dose: 10 mg Multivitamins/Minerals (Centrum) 1 tab PO DAILY [facility] Last Admin: 10/25/17 10:15 Dose: 1 tab Ondansetron HCl (Zofran Odt) 4 mg SL Q6H PRN PRN Reason: NAUSEA/VOMITING Pantoprazole Sodium (Protonix) 40 mg PO DAILYAC [facility] Last Admin: 10/25/17 06:51 Dose: 40 mg Symbicort 160/4.5 2 each INH BID [facility] Last Admin: 10/24/17 21:46 Dose: 2 each Patient Own Medication () 2 each INH ASDIR PRN PRN Reason: WHEEZING Last Admin: 10/24/17 21:47 Dose: 2 each Pramipexole Dihydrochloride (Pramipexole Dihydrochloride) 0.75 mg PO BID [facility] Last Admin: 10/25/17 10:22 Dose: Not Given Prednisone (Prednisone 5mg) 15 mg PO DAILYWM [facility] Last Admin: 10/25/17 08:38 Dose: 15 mg Venlafaxine HCl (Effexor Xr) 75 mg PO BID [facility] Last Admin: 10/25/17 10:16 Dose: 75 mg Objective - Vital Signs Vital Signs: Vital Signs - Last 24 Hrs Temp Pulse Pulse Resp BP Pulse Ox 10/25/17 10:47 84 24 78 L 10/25/17 10:44 85 24 78 L 10/25/17 10:05 75 20 86/48 91 L 10/25/17 10:00 98.1 F 86 22 78/52 94 L 10/24/17 21:48 68 18 10/24/17 20:00 97.5 F L 83 20 129/63 94 L - General General Appearance: Alert, Oriented x3, Cooperative, No acute distress - Head Head exam: Atraumatic, Normocephalic - Eye Eye exam: Normal appearance, EOMI. negative: Conjunctival injection, Periorbital swelling, Periorbital tenderness - ENT ENT exam: Mucous membranes moist, Normal external ear exam Nasal Exam: Normal inspection Mouth exam: Normal external inspection - Neck Neck exam: Normal inspection - Respiratory Respiratory exam: Normal lung sounds bilaterally, Wheezes (left lower lung field ) - Cardiovascular Cardiovascular Exam: Regular rate, Systolic murmur (chronic, holosystolic grade 2/4 heard throughout ) Peripheral Pulses: 2+: Radial (R), Radial (L) - GI/Abdominal GI/Abdominal exam: Soft, Normal bowel sounds, Hernia (chronic). negative: Distended, Hypoactive bowel sounds, Tenderness - Rectal Rectal exam: Deferred - exam: Deferred - Extremities Extremities exam: Pedal edema (R sided edema of the entire LE 3+. Wrapped to compress. Wound intact and dry. Ecchymosis present on the inner thigh and around the incision. ), Tenderness (mild tenderness when assessing for LE edema on the R) - Back Back exam: Reports: Other (ecchymosis in the central lower back. ) - Neurological Neurological exam: Alert, Oriented X3 - Psychiatric Psychiatric exam: Normal mood - Skin Type of lesion: Other (ecchymosis seen on the hands and arms b/l) H&P Results - Labs Result Diagrams: 10/25/17 10:42 10/23/17 06:44 Labs Last 24 Hours: Laboratory Results - last 24 hr 10/25/17 10:42 WBC 15.7 H RBC 2.31 L Hgb 7.4 L Hct 24.8 L MCV 107.4 H MCH 32.0 MCHC 29.8 L RDW 14.4 Plt Count 536 H MPV 8.8 Neutrophils % 84.0 H Eosinophils % Not Reportable Basophils % Not Reportable Lymphocytes 8.0 L Monocytes 7.0 Eosinophil Count 1.0 Discharge Potential - Discharge Needs Community Services Used Prior to Admission: IV Therapy Patient Discharge Plan Description: Return Home Community Services Needed at Discharge: IV Therapy, Occupational Therapy, Oxygen Therapy, Physical Therapy Plan - Swing Bed Certification Initial Certification Due: 10/21/17 14 Day Re-Cert Due: 11/04/17 44 Day Re-Cert Due: 12/04/17 74 Day Re-Cert Due: 01/03/18 - Detailed Diagnosis and Plan (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 - currently on IV Daptomycin 500mg Q24H and Ertapenem 1gm Q24H. - WBCs 15, w/ neutrophil predominance. Repeat labs in the morning. - [place] 10/325mg Q4H PRN, Mobic 15mg QD, - Next Ortho appt in 2 weeks. (2) Physical deconditioning Current Visit: Yes Status: Acute Base Code: R53.81 - OTHER MALAISE Comment : 10/25/17: - deconditioning due to recent right total knee athroplasty. - PT/OT daily. 10/25 report reads ambulation limited by respiratory concerns but patient able to participate. (3) Idiopathic interstitial pulmonary disease Current Visit: Yes Status: Acute Base Code: J84.9 - INTERSTITIAL PULMONARY DISEASE, UNSPECIFIED Comment: 10/25/17 - Co2 42-->40, chronic retainer. - pt's Pulmonary doctor suggests that this is consistent with the progressive worsening of disease. - oxygen to maintain sats between 90-92%, most recent sats 78% on 2 liters. - Incruse ellipta daily, Prednisone 15mg daily, Mucinex and Singulair as scheduled. - Repeat electrolytes this afternoon and in the morning. Check 2 view CXR now. (4) RLS (restless legs syndrome) Current Visit: Yes Status: Acute Base Code: G25.81 - RESTLESS LEGS SYNDROME Comment: 10/25/17: - Pramipexole 0.75mg BID (5) GERD with esophagitis Current Visit: Yes Status: Acute Base Code: K21.0 - GASTRO-ESOPHAGEAL REFLUX DISEASE WITH ESOPHAGITIS Comment: 10/25/17: - Protonix 40mg PO daily. (6) DVT prophylaxis Current Visit: Yes Status: Acute Base Code: [id number] - Comment: 10/25/17: - Lovenox 40mg Sq daily. (7) Full code status Current Visit: Yes Status: Acute Base Code: Z78.9 - OTHER SPECIFIED HEALTH STATUS Comment: 10/25/17: - pt is full code.
[2017-10-25 12:28] LABS: BLOOD UREA NITROGEN 34 mg/dL (8-23); CREATININE 0.9 mg/dL (0.5-0.9); EST GLOMERULAR FILTRATION RATE > 60 mL/min; GLUCOSE,RANDOM 360 mg/dL (74-109)
--- NOTE | 2017-10-25 15:10 | RADIOLOGY REPORT ---
EXAM: PORTABLE CHEST HISTORY: DIFFICULTY BREATHING. TECHNIQUE: A portable upright view of the chest was performed. FINDINGS: The heart size is normal. The lungs are hyperinflated. Bilateral lower lobe infiltrate/pleural effusion. IMPRESSION: BILATERAL LOWER LOBE INFILTRATES. JOB NUMBER: [id number] MTDD
--- NOTE | 2017-10-25 15:34 | Physical Therapy Tx Note ---
Physical Therapy Tx Note - Treatment Note Tolerated: Poor Physical Therapy Tx Note: Detail (Patient was asleep in bed. PT was unable to wake patient. Talked to RN who stated patient had just been up transferring to [facility] and was fatigued. Patient's Hg was 7.4 and patient was recently diagnosed with pnemonia. PT will be held this pm. Will give patient a HEP of LE exercises to be completed over the weekend.) Physical Therapy Problem List: Detail (1)Decreased R LE strength 2) R LE pain which limited patient's functional ability 3) Shortness of breath with physical activity) Physical Therapy Goals: 1) The patient will ambulate with assistive device a distance of 50 to 100 feet independently with minimal shortness of breath. 2) The patient will be able to complete a car transfer into van with assist of . 3) Patient will be IND with HEP. 4) Increase LE muscle strength 1/3 of a grade to increase stability of gait. Physical Therapy Plan: PT 1-2 times a day M-F for gait training, transfer training, LE strengthening and endurance exercises.
[2017-10-25] MEDS: SYMBICORT 160/4.5 INH SCH (21:09)
[2017-10-25] MEDS: PATIENT OWN MED: INH PRN (21:15)
[2017-10-25] MEDS: MONTELUKAST SODIUM 10MG TABLET PO SCH (21:54)
[2017-10-25] MEDS ORDERED: PRAMIPEXOLE 0.75 MG PO SCH (22:00)
[2017-10-25] MEDS ORDERED: ERTAPENEM SODIUM 1 G in 0.9 % SODIUM CHLORIDE 100ML 100 ML IV SCH (22:00)
[2017-10-25] MEDS ORDERED: DAPTOMYCIN 500 MG/VIAL IV SCH (22:00)
[2017-10-26] MEDS: LOPERAMIDE 2 MG CAPSULE PO PRN (01:55)
[2017-10-26] MEDS: HYDROCODONE/APAP 10/325 TABLET PO PRN (06:09)
[2017-10-26] MEDS: PANTOPRAZOLE SODIUM 40 MG TABLET PO SCH (06:09)
[2017-10-26] MEDS: LEVOTHYROXINE SODIUM 75 MCG TABLET PO SCH (06:09)
[2017-10-26] MEDS: PREDNISONE 5 MG TAB PO SCH (08:13)
[2017-10-26] MEDS: MELOXICAM 7.5 MG TABLET PO SCH (08:13)
[2017-10-26] MEDS: FUROSEMIDE 20 MG TABLET PO SCH ×2 (08:14→20:56)
[2017-10-26] MEDS: DOCUSATE SODIUM 100 MG CAPSULE PO SCH (10:19)
[2017-10-26] MEDS: MULTIVITAMINS/MINERALS TABLET PO SCH (10:20)
[2017-10-26] MEDS: CYCLOBENZAPRINE 10MG TABLET PO SCH ×2 (10:20→20:56)
[2017-10-26] MEDS: VENLAFAXINE ER 75 MG CAPSULE PO SCH (10:20)
[2017-10-26] MEDS: SYMBICORT 160/4.5 INH SCH (10:21)
[2017-10-26] MEDS: ENOXAPARIN 40 MG/0.4 ML SYR SQ SCH (10:21)
[2017-10-26] MEDS: GUAIFENESIN 600 MG TABCR PO SCH (10:21)
[2017-10-26] MEDS: ASPIRIN 81 MG CHEWABLE TABLET PO SCH (10:21)
[2017-10-26] MEDS: UMECLIDINIUM BROMIDE (INCRUSE) 62.5MCG IH SCH (10:22)
[2017-10-26] MEDS: IPRATROPIUM/ALBUTEROL (0.5MG/3MG) NEB INH SCH ×3 (10:23→18:46)
[2017-10-26] MEDS: ASPIRIN 81 MG CHEWABLE TABLET PO ONE ×2 (17:30→19:06)
[2017-10-26 18:15] LABS: CKMB 2.5 ng/mL (<3.77)
--- NOTE | 2017-10-26 18:24 | Physician Progress Note ---
Subjective - Date Date of Progress Note: 10/26/17 - Admitting Diagnosis Diagnosis: Right knee infection s/p total knee replacement; deconditioning - Subjective Events since last encounter: Physcian called at approx 17:50 pm with report of patient in respiratory distress and desaturating in the 70s, in addition to tachycardia with HR > 200. The patient's oxygen requirement is currently at 4 liters. an TABLEAU LEAD was called and the patient assessed by ED physician Dr. Cadet. Stat labs ordered: cardiac enzymes, ABG. CT for PE protocol ordered. Nursing Care Plan Problem List Activity Intolerance (Swing Bed) Start: 10/21/17 16: 14 Freq: Status: Active Protocol: Created 10/21/17 16:14 KM (Rec: 10/21/17 16:14 [facility] [place] [facility] [id number]) Altered Thought Process (Fall Risk) Start: 10/21/17 21: 23 Freq: Status: Active Protocol: Created 10/21/17 21:23 MHA (Rec: 10/21/17 21:23 [facility] [id number]) Impaired Mobility (Fall Risk) Start: 10/21/17 21: 23 Freq: Status: Active Protocol: Created 10/21/17 21:23 MHA (Rec: 10/21/17 21:23 [facility] [id number]) Knowledge Deficit (Swing Bed) Start: 10/21/17 16: 14 Freq: Status: Active Protocol: Created 10/21/17 16:14 [facility] [place] [facility] (Rec: 10/21/17 16:14 [facility] [id number]) Pain (Swing Bed) Start: 10/21/17 16: 14 Freq: Status: Active Protocol: Created 10/21/17 16:14 [facility] [place] [facility] (Rec: 10/21/17 16:14 [facility] [id number]) Risk for Injury (Fall Risk) Start: 10/21/17 21: 23 Freq: Status: Active Protocol: Created 10/21/17 21:23 MHA (Rec: 10/21/17 21:23 [facility] [id number]) Subjective: Pt has increased respiratory effort as per nursing. Stable sats but continuing fluctuate with drops in the 70s at rest. General - Cognitive Patterns Speech: Soft Thought Process: Intact Thought Content: Normal - Communication Select best description of speech pattern: Clear Speech Ability to express ideas and wants: Understood Understanding verbal content: Understands - Mood and Behavior Patterns Appearance: Disheveled Mood: Normal Attitude: Cooperative Motor Activity: Calm Affect: Appropriate Hallucinations: Denies - Physical Functioning Activity Level: Up with assist x2 Turning: With partial assist ROM Ability: Moves all extremities Assistive Devices: Walker Ambulation Ability: Independent Bed Mobility: Independent Transfer Ability: Independent Bathing Ability: Independent Personal Hygiene: Independent Dressing Ability: Independent Eating (Feeding) Ability: Independent Toileting Ability: Independent Administer Own Medication: Independent - Continence Bowel Pattern: Normal for Patient Bladder Pattern: Normal Meds/Allergies - Allergies Allergies Allergy/AdvReac Type Severity Reaction Status Date / Time acetaminophen AdvReac HIVES Verified 10/22/17 07:00 [From Darvocet-N 100] adhesive AdvReac HYPERSENSIT Verified 10/21/17 17:03 IVITY cefaclor [From Ceclor] AdvReac NAUSEA AND Verified 10/21/17 17:03 VOMITING celecoxib [From Celebrex] AdvReac HIVES Verified 10/21/17 17:03 fluticasone [From Flonase] AdvReac HIVES Verified 10/21/17 17:03 hydromorphone [From Dilaudid] AdvReac HIVES Verified 10/21/17 17:03 meperidine [From Demerol] AdvReac HIVES Verified 10/21/17 17:03 nafcillin AdvReac HIVES Verified 10/21/17 17:03 propoxyphene AdvReac HIVES Verified 10/21/17 17:03 [From Darvocet-N 100] quinine AdvReac HIVES Verified 10/21/17 17:03 Sulfa (Sulfonamide AdvReac HIVES Verified 10/21/17 17:03 Antibiotics) tramadol [From Ultram] AdvReac HIVES Verified 10/21/17 17:03 - Active Medications Current Medications Acetaminophen (Tylenol 325mg) 650 mg PO Q6H PRN PRN Reason: PAIN - MILD (1-4) Hydrocodone Bitart/Acetaminophen ([place] 10mg/325mg) 1 each PO Q4H PRN PRN Reason: PAIN - MOD TO SEVERE (5-10) Last Admin: 10/24/17 06:25 Dose: 1 each Hydrocodone Bitart/Acetaminophen ([place] 10mg/325mg) 2 each PO Q4H PRN PRN Reason: PAIN - SEVERE (8-10) Last Admin: 10/26/17 06:09 Dose: 2 each Al Hydroxide/Mg Hydroxide (Maalox) 30 ml PO Q4H PRN PRN Reason: GI UPSET Albuterol/Ipratropium (Duoneb) 3 ml INH RESP.Q4H.[facility] Last Admin: 10/26/17 14:25 Dose: 3 ml Aspirin (Aspirin Chewable) 81 mg PO DAILY [facility] Last Admin: 10/26/17 10:21 Dose: 81 mg Bisacodyl (Dulcolax) 10 mg RC DAILY PRN PRN Reason: CONSTIPATION Cyclobenzaprine HCl (Flexeril) 10 mg PO TID [facility] Last Admin: 10/26/17 10:20 Dose: 10 mg Daptomycin (Cubicin) 500 mg IV QHS [facility] Stop: 10/26/17 23:00 Last Admin: 10/25/17 21:55 Dose: 500 mg Docusate Sodium (Colace) 100 mg PO BID [facility] Last Admin: 10/26/17 10:19 Dose: 100 mg Enoxaparin Sodium (Lovenox) 40 mg SQ DAILY [facility] Last Admin: 10/26/17 10:21 Dose: 40 mg Furosemide (Lasix) 20 mg PO 0800,1400 [facility] Last Admin: 10/26/17 08:14 Dose: 20 mg Guaifenesin (Mucinex) 600 mg PO BID [facility] Last Admin: 10/26/17 10:21 Dose: 600 mg Ertapenem 1 g/ Sodium Chloride 100 mls @ 100 mls/hr IV QHS [facility] Last Infusion: 10/25/17 23:00 Dose: Infused Levothyroxine Sodium (Synthroid) 75 mcg PO DAILYTHY [facility] Last Admin: 10/26/17 06:09 Dose: 75 mcg Loperamide HCl (Immodium) 2 mg PO Q4H PRN PRN Reason: DIARRHEA Last Admin: 10/26/17 01:55 Dose: 2 mg Melatonin (Melatonin) 15 mg PO QHS PRN PRN Reason: SLEEP Last Admin: 10/23/17 23:59 Dose: 15 mg Meloxicam (Mobic) 15 mg PO DAILYWM [facility] Last Admin: 10/26/17 08:13 Dose: 15 mg Montelukast Sodium (Singulair) 10 mg PO QHS [facility] Last Admin: 10/25/17 21:54 Dose: 10 mg Multivitamins/Minerals (Centrum) 1 tab PO DAILY [facility] Last Admin: 10/26/17 10:20 Dose: 1 tab Ondansetron HCl (Zofran Odt) 4 mg SL Q6H PRN PRN Reason: NAUSEA/VOMITING Pantoprazole Sodium (Protonix) 40 mg PO DAILYAC [facility] Last Admin: 10/26/17 06:09 Dose: 40 mg Symbicort 160/4.5 2 each INH BID [facility] Last Admin: 10/26/17 10:21 Dose: 2 each Patient Own Medication () 2 each INH ASDIR PRN PRN Reason: WHEEZING Last Admin: 10/25/17 21:15 Dose: 2 each Patient Own Med: (Pramipexole 0.75 Mg) 2 each PO QHS [facility] Last Admin: 10/25/17 21:55 Dose: 2 each Prednisone (Prednisone 5mg) 15 mg PO DAILYWM [facility] Last Admin: 10/26/17 08:13 Dose: 15 mg Venlafaxine HCl (Effexor Xr) 75 mg PO BID [facility] Last Admin: 10/26/17 10:20 Dose: 75 mg Objective - Vital Signs Vital Signs: Vital Signs - Last 24 Hrs Temp Pulse Pulse Resp BP Pulse Ox 10/26/17 18:00 93 L 10/26/17 17:59 98 10/26/17 14:25 88 18 94 L 10/26/17 10:25 87 18 97 10/26/17 08:45 16 97 10/26/17 08:00 97.9 F 81 18 101/53 91 L 10/25/17 21:02 100 H 20 90 L 10/25/17 20:00 98.5 F 83 22 133/68 90 L - General General Appearance: Alert, Oriented x3, Cooperative, No acute distress - Head Head exam: Atraumatic, Normocephalic - Eye Eye exam: Normal appearance, EOMI. negative: Conjunctival injection, Periorbital swelling, Periorbital tenderness - ENT ENT exam: Mucous membranes moist, Normal external ear exam Nasal Exam: Normal inspection Mouth exam: Normal external inspection - Neck Neck exam: Normal inspection - Respiratory Respiratory exam: Normal lung sounds bilaterally, Wheezes (left lower lung field ) - Cardiovascular Cardiovascular Exam: Regular rate, Systolic murmur (chronic, holosystolic grade 2/4 heard throughout ) Peripheral Pulses: 2+: Radial (R), Radial (L) - GI/Abdominal GI/Abdominal exam: Soft, Normal bowel sounds, Hernia (chronic). negative: Distended, Hypoactive bowel sounds, Tenderness - Rectal Rectal exam: Deferred - exam: Deferred - Extremities Extremities exam: Pedal edema (R sided edema of the entire LE 3+. Wrapped to compress. Wound intact and dry. Ecchymosis present on the inner thigh and around the incision. ), Tenderness (mild tenderness when assessing for LE edema on the R) - Back Back exam: Reports: Other (ecchymosis in the central lower back. ) - Neurological Neurological exam: Alert, Oriented X3 - Psychiatric Psychiatric exam: Normal mood - Skin Type of lesion: Other (ecchymosis seen on the hands and arms b/l) H&P Results - Labs Result Diagrams: 10/25/17 10:42 10/25/17 10:42 Labs Last 24 Hours: Laboratory Results - last 24 hr 10/26/17 17:50 CK-MB (CK-2) 2.5 Troponin T < 0.010 Discharge Potential - Discharge Needs Community Services Used Prior to Admission: IV Therapy Patient Discharge Plan Description: Return Home Community Services Needed at Discharge: IV Therapy, Occupational Therapy, Oxygen Therapy, Physical Therapy Plan - Swing Bed Certification Initial Certification Due: 10/21/17 14 Day Re-Cert Due: 11/04/17 44 Day Re-Cert Due: 12/04/17 74 Day Re-Cert Due: 01/03/18 - Detailed Diagnosis and Plan (1) Pneumonia of both lower lobes Current Visit: Yes Status: Acute Base Code: J18.9 - PNEUMONIA, UNSPECIFIED ORGANISM Comment: 10/26/17: - bilateral lower lobe infiltrates on cxr done 10/25. - pt is currently on Daptomycin IV 500mg Q24H and Ertapenem 1gm Q24H. - wbcs 15, oxygen req increased to 4 liters as of this evening, currently saturating in the low 90s. - ABG, blood cultures pending. (2) Infection of total right knee replacement Current Visit: Yes Status: Acute Base Code: T84.53XA - INFECT/INFLM REACTION DUE TO INTERNAL R KNEE PROSTH, INIT Comment: 10/26/17: - s/p revision athroplasty w/ I&D. - currently on IV Daptomycin 500mg Q24H and Ertapenem 1gm Q24H. - WBCs 15, w/ neutrophil predominance. Repeat labs in the morning. - Vidalia 10/325mg Q4H PRN, Mobic 15mg QD, - Next Ortho appt in 2 weeks. (3) Physical deconditioning Current Visit: Yes Status: Acute Base Code: R53.81 - OTHER MALAISE Comment : 10/26/17: - deconditioning due to recent right total knee athroplasty. - PT/OT daily. 10/25 report reads ambulation limited by respiratory concerns but patient able to participate. (4) Idiopathic interstitial pulmonary disease Current Visit: Yes Status: Acute Base Code: J84.9 - INTERSTITIAL PULMONARY DISEASE, UNSPECIFIED Comment: 10/26/17 - Co2 42-->40, chronic retainer. -ABG ordered - pt's Pulmonary doctor suggests that this is consistent with the progressive worsening of disease. - oxygen to maintain sats between 90-92%, most recent sats 78% on 2 liters. - Incruse ellipta daily, Prednisone 15mg daily, Mucinex and Singulair as scheduled. - Repeat electrolytes this afternoon and in the morning. Check 2 view CXR now. (5) RLS (restless legs syndrome) Current Visit: Yes Status: Acute Base Code: G25.81 - RESTLESS LEGS SYNDROME Comment: 10/26/17: - Pramipexole 0.75mg daily (6) GERD with esophagitis Current Visit: Yes Status: Acute Base Code: K21.0 - GASTRO-ESOPHAGEAL REFLUX DISEASE WITH ESOPHAGITIS Comment: 10/26/17: - Protonix 40mg PO daily. (7) DVT prophylaxis Current Visit: Yes Status: Acute Base Code: BSK8131 - Comment: 10/26/17: - Lovenox 40mg Sq daily. (8) Full code status Current Visit: Yes Status: Acute Base Code: Z78.9 - OTHER SPECIFIED HEALTH STATUS Comment: 10/26/17: - pt is full code. - Disposition [place] transfer back [place] [facility] [place] step [place] care pending labs and CTA. CXR read from yesterday is reporting bilateral lung infiltrates. The patient is currently on Daptomycin and Ertapenem for right knee prosthestic infection. Cultures drawn yesterday pending. Nursing to contact Dr. Snell with stat labs and CT results.
[2017-10-26 18:45] LABS: ARTERIAL BLOOD GAS BASE EXCESS 11.4 mmol/L (-2 - 3); ARTERIAL BLOOD GAS HCO3 38.2 mmol/L (18-23); ARTERIAL BLOOD GAS pH 7.33 (7.35-7.45); CARBOXYHEMOGLOBIN 3.1 % (0-1.5); METHEMOGLOBIN 0.7 % (0.0-1.5); O2 HEMOGLOBIN 76.5 % vol (94-99); TOTAL HEMOGLOBIN 6.5 g/dl (11.6-16)
[2017-10-26 18:46] LABS: ARTERIAL BLD GAS O2 SATURATION 79.5 % (95-98); ARTERIAL BLOOD GAS PCO2 75.4 mmHg (35-48)
[2017-10-26 18:47] LABS: ALLEN TEST PASS
[2017-10-27] MEDS ORDERED: ASPIRIN 81 MG CHEWABLE TABLET PO SCH (10:00)
--- NOTE | 2017-10-28 08:54 | CT ANGIOGRAM REPORT ---
EXAM: EMERGENCY CTA OF THE CHEST FOR PE WITH POST PROCESSING HISTORY: SUDDEN CHEST PAIN WITH SHORTNESS OF BREATH, POSSIBLE PE. TECHNIQUE: CTA of the chest was performed following the intravenous administration of iodated contrast media. Please see the medical record for IV contrast specifics. Post processing on an independent workstation was performed with multiple 3D MIP series obtained. Comparison: No prior chest CT. Comparison is made with the AP chest performed yesterday on 10/25/17. FINDINGS: No definite PE identified. No thoracic aortic aneurysm or dissection is seen. No pleural or pericardial effusion evident. Postop left shoulder arthroplasty creating considerable metallic orthopedic hardware artifact at the level of the arthroplasty. No definite hilar or mediastinal adenopathy is seen. Elevation of the right hemidiaphragm. Cardiomegaly with some coronary artery calcification. Degenerative arthritis right shoulder. No pneumothorax evident. Somewhat shallow inspiration with bibasilar streaky atelectasis or infiltrate noted on yesterday's chest x-ray as well. Prominent spurring in the mid to lower thoracic spine. Compression of the superior end plate of the body of what is probably T12. This is presumably chronic although comparison with any prior spine or even chest x-rays that include a lateral view of the thoracic spine would be useful. IMPRESSION: 1. NO DEFINITE PE IDENTIFIED. 2. POSTOP LEFT SHOULDER ARTHROPLASTY AND DEGENERATIVE ARTHRITIS RIGHT SHOULDER. 3. ELEVATION RIGHT HEMIDIAPHRAGM. SOMEWHAT SHALLOW INSPIRATION WITH BIBASILAR STREAKY ATELECTASIS OR INFILTRATE. 4. 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 JOB NUMBER: [id number] MTDD
--- NOTE | 2017-10-28 09:44 | Rehab Discharge Summary ---
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 Ordered Treatment: PT Evaluate and Treat Past Medical/Surgical Hx: PAST MEDICAL/SURGICAL HISTORY Past Surgical History left total knee PMH - Respiratory Hx Respiratory Disorders Yes Hx Chronic Obstructive No Pulmonary Disease (COPD) Hx Sleep Apnea Yes Hx of CPAP No: Bipap Comment: Idiopathic interstitial lung disease PMH - Cardiovascular Hx Cardiovascular Disorders Yes Hx Rheumatic Fever Yes Hx Heart Murmur Yes Comment: murmur PMH - Neuro Hx Neurological Disorders No PMH - GI Hx Gastrointestinal Disorders Yes Hx Gastroesophageal Reflux Yes Comment: c/o dysphagia PMH - Hx Genitourinary Disorders Yes Hx Bladder Problem Yes Comment: frequency from BID Lasix PMH - Endocrine Hx Endocrine Disorders Yes Hx Diabetes No Hx Thyroid Disease Yes PMH - Musculoskeletal Hx Musculoskeletal Disorders Yes Hx Arthritis Yes Hx Fibromyalgia Yes PMH - Psych Hx Psychiatric Problems Yes Hx Anxiety Yes Hx Depression Yes PMH - Hematology/Oncology Hx Hematology/Oncology No Disorders Premorbid Status: Detail (Pt has been dealing with this since 2007, with multiple sx's. PLOF is prior to most recent sx and hospital stay, but after original level of functioning. 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 Pt. is modified Ind. with self-care tasks, with the exception of supervising tub t/f for safety. She has a sludge mill operator , shoe horn, and bathing tool. Pt. no longer drives; assists with transportation needs.) Social History: Detail (Pt. lives with her in a 1-story house with basement. Pt. does not use the basement, but it contains laundry facilities so takes care of laundry. House has a ramp entry. Pt. primarily uses w/c for in-home mobility at this time, but would prefer to use walker instead. Bathroom has a tub/shower with grab bar, hand held shower head, and shower chair. Toilet is raised with attached handles bilaterally.) Precautions: [place], Fall, Other (RLE WBAT, SOB, Contace isolation) Subjective Information - Subjective Information Per Patient (Patient was too fatigued to participate when last seen by PT on .) Objective Data - Mental Status Patient Orientation: Oriented x3 - Visual Perception Appears within normal limits for therapeutic activities - ROM Not within normal limits (The patient's LE AROM was WNL except for R knee flexion which was aproximately 90 degrees of flexion. Knee extension was not fully assessed due to dressing, however minimal limitations were noted.) - Strength/Tone Not within normal limits ( LE Strength was not re-evaluated prior to discharge, however knee extension was less painful compared to initial evaluation.) - Bed Mobility Independent (The patient was independent with supine to and from sit and scooting up in bed.) - Transfers Independent (The patient required supervision for safety only due to deconditioned status for sit to and from stand transfer.) - Balance Balance Sitting: Good Balance Standing: Fair - Gait Detail (The patient's ambulation distance was variable depending on medical status. The patient ambulated a maximal distance of 25 feet x 1 with supervision for safety, WBAT on the R LE and 3 L of O2. The patient continued to have shortness of breath with ambulation and used proper pursed lip breathing techniques.) Therapy Assessment - Therapy Assessment Detail (The patient was transferred to [facility] due to medical status.) Problem List - Problem List Physical Therapy Problem List: Detail (1)Decreased R LE strength 2) R LE pain which limited patient's functional ability 3) Shortness of breath with physical activity) Occupational Therapy Problem List: Detail (SOB, decreased activity tolerance/ endurance, decreased safety and Ind. with ADL's, impaired FMC and sensation in Bilateral hands) Goals - Goals Physical Therapy Goals: 1) The patient will ambulate with assistive device a distance of 50 to 100 feet independently with minimal shortness of breath.( Not Met). 2) The patient will be able to complete a car transfer into van with assist of . (Not Met). 3) Patient will be IND with HEP. ( Goal Met). 4 ) Increase LE muscle strength 1/3 of a grade to increase stability of gait.(Not Met). Goals were not met secondary to declining medical status. Occupational Therapy Goals: 1) Pt. will participate in dressing and shower evaluation to further assess needs. 2) Pt. will improve activity tolerance to complete typical morning ADL routine (i.e. participate for 10 minutes with seated rest breaks as needed and use of oxygen). 3) Pt. will dress TB modified Ind. 4) Pt. will toilet with modified Ind. 5) Pt. will safely complete a tub t /f with CGA as needed by caregiver (i.e. ). 6) Pt. will demo. awareness of adaptations or modifications to prevent increased hand numbness with use of w /c or walker. Plan - Plan Physical Therapy Plan: Patient was transferred to [facility] due to declining medical status. Occupational Therapy Plan: Pt. will be seen 2-4x's/week Mon-Fri during rehab business hours until pt. has met OT goals and/or is d/c from the hospital.
--- NOTE | 2017-10-28 16:13 | Rehab Discharge Summary ---
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 Ordered Treatment: OT Evaluate and Treat Past Medical/Surgical Hx: PAST MEDICAL/SURGICAL HISTORY Past Surgical History left total knee PMH - Respiratory Hx Respiratory Disorders Yes Hx Chronic Obstructive No Pulmonary Disease (COPD) Hx Sleep Apnea Yes Hx of CPAP No: Bipap Comment: Idiopathic interstitial lung disease PMH - Cardiovascular Hx Cardiovascular Disorders Yes Hx Rheumatic Fever Yes Hx Heart Murmur Yes Comment: murmur PMH - Neuro Hx Neurological Disorders No PMH - GI Hx Gastrointestinal Disorders Yes Hx Gastroesophageal Reflux Yes Comment: c/o dysphagia PMH - Hx Genitourinary Disorders Yes Hx Bladder Problem Yes Comment: frequency from BID Lasix PMH - Endocrine Hx Endocrine Disorders Yes Hx Diabetes No Hx Thyroid Disease Yes PMH - Musculoskeletal Hx Musculoskeletal Disorders Yes Hx Arthritis Yes Hx Fibromyalgia Yes PMH - Psych Hx Psychiatric Problems Yes Hx Anxiety Yes Hx Depression Yes PMH - Hematology/Oncology Hx Hematology/Oncology No Disorders Premorbid Status: Detail (Pt has been dealing with this since 2007, with multiple sx's. PLOF is prior to most recent sx and hospital stay, but after original level of functioning. Pt. is responsible for shared military personnel specialist as she is able, such as: occasional basic meal prep, cleaning bathroom, replacing waste basket bags, etc. Pt. is modified Ind. with self-care tasks, with the exception of supervising tub t/f for safety. She has a thread trimmer , shoe horn, and bathing tool. Pt. no longer drives; assists with transportation needs.) Social History: Detail (Pt. lives with her in a 1-story house with basement. Pt. does not use the basement, but it contains laundry facilities so takes care of laundry. House has a ramp entry. Pt. primarily uses w/c for in-home mobility at this time, but would prefer to use walker instead. Bathroom has a tub/shower with grab bar, hand held shower head, and shower chair. Toilet is raised with attached handles bilaterally.) Precautions: [place], Fall, Other (RLE WBAT, SOB, Contact isolation, using 2- 3 liters of oxygen) Objective Data - Pain Pain Present: Unchanged from Previous Assessment - Mental Status Patient Orientation: Oriented x3 - Visual Perception Appears within normal limits for therapeutic activities - ROM Within normal limits (Deny UE AROM functional throughout) - Strength/Tone Within normal limits (Deny UE strength 4+/5) - Coordination Appears within normal limits for therapeutic activities - Bed Mobility Independent (Ind with supine to sit) - Transfers Independent (Ind with sit to stand) - Balance Balance Sitting: Good Balance Standing: Fair - Sensation Intact - Gait Detail (Pt ambulating in room with 2 wheeled walker Indly) - ADL's/IADL's Detail (Pt able to complete sponge bathing, dressing, grooming/hygiene and toileting using modified techniques and pursed lip breathing Indly. She does become significantly short of breath with activity.) Therapy Assessment - Therapy Assessment Detail (Pt continues with decreased endurance but she is Ind with pacing self and using pursed lip breathing.) Problem List - Problem List Physical Therapy Problem List: Detail (1)Decreased R LE strength 2) R LE pain which limited patient's functional ability 3) Shortness of breath with physical activity) Occupational Therapy Problem List: Detail (SOB, decreased activity tolerance/ endurance, decreased safety and Ind. with ADL's, impaired FMC and sensation in Bilateral hands) Goals - Goals Physical Therapy Goals: 1) The patient will ambulate with assistive device a distance of 50 to 100 feet independently with minimal shortness of breath.( Not Met). 2) The patient will be able to complete a car transfer into van with assist of . (Not Met). 3) Patient will be IND with HEP. ( Goal Met). 4 ) Increase LE muscle strength 1/3 of a grade to increase stability of gait.(Not Met). Goals were not met secondary to declining medical status. Occupational Therapy Goals: Goals partially met: 1) Pt. will participate in dressing and shower evaluation to further assess needs. 2) Pt. will improve activity tolerance to complete typical morning ADL routine (i.e. participate for 10 minutes with seated rest breaks as needed and use of oxygen). 3) Pt. will dress TB modified Ind. 4) Pt. will toilet with modified Ind. 5) Pt. will safely complete a tub t/f with CGA as needed by caregiver (i.e. ). 6) Pt. will demo. awareness of adaptations or modifications to prevent increased hand numbness with use of w/c or walker. Prognosis - Prognosis Moderate Plan - Plan Physical Therapy Plan: Patient was transferred to [facility] due to declining medical status. Occupational Therapy Plan: Pt was discharged to [facility] due to declining medical status.
--- NOTE | 2017-10-30 07:32 | Discharge Summary ---
Providers Discharge Summary Date: 10/30/17 Date of admission: 10/21/17 16:02 Attending physician: WILMA SNELL Primary care physician: JAYDE GRANGER D.O. Physical Exam - General General Appearance: Alert, Oriented x3, Cooperative, No acute distress - Head Head exam: Atraumatic, Normocephalic - Eye Eye exam: Normal appearance, EOMI. negative: Conjunctival injection, Periorbital swelling, Periorbital tenderness - ENT ENT exam: Mucous membranes moist, Normal external ear exam Nasal Exam: Normal inspection Mouth exam: Normal external inspection - Neck Neck exam: Normal inspection - Respiratory Respiratory exam: Normal lung sounds bilaterally, Wheezes (left lower lung field ) - Cardiovascular Cardiovascular Exam: Regular rate, Systolic murmur (chronic, holosystolic grade 2/4 heard throughout ) Peripheral Pulses: 2+: Radial (R), Radial (L) - GI/Abdominal GI/Abdominal exam: Soft, Normal bowel sounds, Hernia (chronic). negative: Distended, Hypoactive bowel sounds, Tenderness - Rectal Rectal exam: Deferred - exam: Deferred - Extremities Extremities exam: Pedal edema (R sided edema of the entire LE 3+. Wrapped to compress. Wound intact and dry. Ecchymosis present on the inner thigh and around the incision. ), Tenderness (mild tenderness when assessing for LE edema on the R) - Back Back exam: Reports: Other (ecchymosis in the central lower back. ) - Neurological Neurological exam: Alert, Oriented X3 - Psychiatric Psychiatric exam: Normal mood - Skin Type of lesion: Other (ecchymosis seen on the hands and arms b/l) Hospitalization - Hospitalization Admission Diagnosis: Right knee infection s/p total knee replacement; deconditioning - Problem List/Discharge Diagnosis (1) Pneumonia of both lower lobes Status: Acute Base Code: J18.9 - PNEUMONIA, UNSPECIFIED ORGANISM Comment: 10/26/17: - bilateral lower lobe infiltrates on cxr done 10/25. - pt is currently on Daptomycin IV 500mg Q24H and Ertapenem 1gm Q24H. - wbcs 15, oxygen req increased to 4 liters as of this evening, currently saturating in the low 90s. - ABG, blood cultures pending. (2) Infection of total right knee replacement Status: Acute Base Code: T84.53XA - INFECT/INFLM REACTION DUE TO INTERNAL R KNEE PROSTH, INIT Comment: 10/26/17: - s/p revision athroplasty w/ I&D. - currently on IV Daptomycin 500mg Q24H and Ertapenem 1gm Q24H. - WBCs 15, w/ neutrophil predominance. Repeat labs in the morning. - [place] 10/325mg Q4H PRN, Mobic 15mg QD, - Next Ortho appt in 2 weeks. (3) Physical deconditioning Status: Acute Base Code: R53.81 - OTHER MALAISE Comment: 10/26/17: - deconditioning due to recent right total knee athroplasty. - PT/OT daily. 10/25 report reads ambulation limited by respiratory concerns but patient able to participate. (4) Idiopathic interstitial pulmonary disease Status: Acute Base Code: J84.9 - INTERSTITIAL PULMONARY DISEASE, UNSPECIFIED Comment: 10/26/17 - Co2 42-->40, chronic retainer. -ABG ordered - pt's Pulmonary doctor suggests that this is consistent with the progressive worsening of disease. - oxygen to maintain sats between 90-92%, most recent sats 78% on 2 liters. - Incruse ellipta daily, Prednisone 15mg daily, Mucinex and Singulair as scheduled. - Repeat electrolytes this afternoon and in the morning. Check 2 view CXR now. (5) RLS (restless legs syndrome) Status: Acute Base Code: G25.81 - RESTLESS LEGS SYNDROME Comment: 10/26/17: - Pramipexole 0.75mg daily (6) GERD with esophagitis Status: Acute Base Code: K21.0 - GASTRO-ESOPHAGEAL REFLUX DISEASE WITH ESOPHAGITIS Comment: 10/26/17: - Protonix 40mg PO daily. (7) DVT prophylaxis Status: Acute Base Code: AXB1124 - Comment: 10/26/17: - Lovenox 40mg Sq daily. (8) Full code status Status: Acute Base Code: Z78.9 - OTHER SPECIFIED HEALTH STATUS Comment: 10/26/17: - pt is full code. - Disposition Possible transfer back to [facility] for MICU or step down care pending labs and CTA. CXR read from yesterday is reporting bilateral lung infiltrates. The patient is currently on Daptomycin and Ertapenem for right knee prosthestic infection. Cultures drawn yesterday pending. Nursing to contact Dr. Snell with stat labs and CT results. - Hospitalization Course Disposition: Acute Care Hospital Transfer Hospital Course: PMH: Idiopathic interstitial lung disease requiring continuous O2 and Bipap nightly, GERD, Lupus, and fibromyalgia. Hospital course: Pt admitted into [facility] this AM. Was seen at [facility] for R knee joint infection. Conservative options for infection management failed and underwent elective revision arthroplasty with I&D, and poly-exchange revision. She tolerated the procedure well and was started on IV abx through PICC line for infection management and narcotics orally for pain control. She was tolerating PT/ OT on POD 2 and transferred to [facility] for [place]. Today: the patient has no complaints. Feels like her pain is controlled. 10/26: The patient's saturations dropped in the 70s and she became tachycardic. ABG showed and acute on chronic respiratory acidosis with chornic Co2 retention. The patient was accepted by D medicine service at [facility]. Procedures: Imaging and X-Rays 10/25/17 12:12 CHEST 1 VIEW [RAD] Stat 10/26/17 17:46 CHEST CTA w contrast [CTA] Stat Cardiology Procedures 10/26/17 17:48 EKG NOW Abnormal Labs: Abnormal Lab Results 10/22/17 10/22/17 10/23/17 Range/Units 06:47 06:47 06:44 WBC (4.2-12.2) K/uL RBC 2.30 L (3.80-5.40) M/uL Hgb 7.3 L (11.6-16.0) gm/dl Hct 24.1 L (35.0-47.0) % MCV 104.8 H (81-97) fl MCHC 30.3 L (32-36) g/dl Plt Count 466 H (130-400) K/uL Neutrophils % (47-80) % Lymphocytes % 12.0 L (16-45) % Lymphocytes (16-45) % ESR 75 H (0-30) mm/hr pCO2 (35-48) mmHg pO2 (83-108) mmHg HCO3 (18-23) mmol/L Oxyhemoglobin (94-99) % vol ABG pH (7.35-7.45) ABG O2 Saturation (95-98) % ABG Base Excess (-2 - 3) mmol/L Carboxyhemoglobin (0-1.5) % Total Hemoglobin (11.6-16) g/dl Chloride 90 L 90 L (98-107) mmol/L Carbon Dioxide 42.0 H 40.0 H (22-29) mmol/L BUN (8-23) mg/dL Creatinine 0.3 L 0.3 L (0.5-0.9) mg/dL Random Glucose 197 H 200 H (74-109) mg/dL Calcium 8.7 L (8.8-10.2) mg/dL Alkaline Phosphatase 105 H (35-104) U/L Total Protein 5.4 L 6.4 L (6.6-8.7) g/dL Albumin 3.2 L 3.7 L (4.0-5.0) g/dL 10/25/17 10/25/17 10/26/17 Range/Units 10:42 10:42 17:54 WBC 15.7 H (4.2-12.2) K/uL RBC 2.31 L (3.80-5.40) M/uL Hgb 7.4 L (11.6-16.0) gm/dl Hct 24.8 L (35.0-47.0) % MCV 107.4 H (81-97) fl MCHC 29.8 L (32-36) g/dl Plt Count 536 H (130-400) K/uL Neutrophils % 84.0 H (47-80) % Lymphocytes % (16-45) % Lymphocytes 8.0 L (16-45) % ESR (0-30) mm/hr pCO2 75.4 H* (35-48) mmHg pO2 49.0 L (83-108) mmHg HCO3 38.2 H (18-23) mmol/L Oxyhemoglobin 76.5 L (94-99) % vol ABG pH 7.33 L (7.35-7.45) ABG O2 Saturation 79.5 L* (95-98) % ABG Base Excess 11.4 H (-2 - 3) mmol/L Carboxyhemoglobin 3.1 H (0-1.5) % Total Hemoglobin 6.5 L (11.6-16) g/dl Chloride 89 L (98-107) mmol/L Carbon Dioxide 33.0 H (22-29) mmol/L BUN 34 H (8-23) mg/dL Creatinine (0.5-0.9) mg/dL Random Glucose 360 H (74-109) mg/dL Calcium (8.8-10.2) mg/dL Alkaline Phosphatase (35-104) U/L Total Protein (6.6-8.7) g/dL Albumin (4.0-5.0) g/dL Condition at Discharge: (5) Critical Discharge Plan - Discharge Instructions Activity at Discharge: Wear Oxygen At All Times Diet at Discharge: Regular Diet Additional Instructions: Transfer to [facility] for further management. I spoke to Medicine D service ant they' ve accepted for transfer. Quality Measures - Quality Measures Quality Measures: Advance Directives, Documentation of Current Medications in Medical Record, Elder Maltreatment Screen and Follow-Up Plan, Screening for High Blood Pressure and F/U Documented - Current Medications Quality Measure: Measure #130: Documentation of Current Medications Documentation of Current Medications: <Current Medications Documented/Reviewed> [[id number]] - Blood Pressure Screening Quality Measure: Screening for High Blood Pressure and Follow-Up Documented Does Patient Have Any of the Following: No Blood Pressure Classification: Normal BP Reading Systolic Measurement: 101 Diastolic Measurement: 48 Screening for High Blood Pressure: < Normal BP, F/U Not Required > [R1113] - Advance Directives Quality Measure: Measure #47: Care Plan Advance Directives Established: No Advance Directives Information Provided To Patient: No Advance Directives on File: No Living Will: No Power of Senior Integration Developer: No Advance Care Planning: <Care Plan/Decision Maker Documented; Discussed & Documented> [[id number]] - Elder Abuse Suspicion Index Screening: Elder Abuse Suspicion Index Screening Rely on people for bathing, dressing, shopping, banking, etc: Yes Prevented from getting food, clothes, medication, etc: No Made to feel shamed or threatened by someone: No Forced to sign papers or use money against will: No Feel afraid, touched in ways not wanted or hurt physically: No Poor eye contact, withdrawn, malnourished, cuts or bruises: No Screening Result: Negative result EASI Reference Information: Jaimie CLARK, Kary Garcia, Pb Henson, Yasmin Wyatt.Development and validation of a tool to assist physicians identification of elder abuse: The Elder Abuse Suspicion Index (EASI ). Journal of Elder Abuse and Neglect, 2008; 20 (3): 276-300. - Elder Maltreatment Screen Quality Measures: Elder Maltreatment Screen and Follow-Up Plan Elder Maltreatment Screen: <Negative, No Follow-Up Plan Required> [[id number]]
== END 2017-10-26 20:30 | disposition short-term general hospital (02) | DRG 559 ==
LOC: MEDSURG 16:02
PROVIDERS: ADMIT Internal Medicine; ATTEND Internal Medicine
DX: T84.53XA Infection and inflammatory reaction due to internal right knee prosthesis, initial encounter (principal); J18.9 Pneumonia, unspecified organism; J84.9 Interstitial pulmonary disease, unspecified; M32.9 Systemic lupus erythematosus, unspecified; E03.9 Hypothyroidism, unspecified; K21.0 Gastro-esophageal reflux disease with esophagitis; D64.9 Anemia, unspecified; R60.9 Edema, unspecified; G25.81 Restless legs syndrome
CPT/HCPCS: 36600; 71045; 71275; 80048; 80053; 82375; 82553; 82803; 84484; 85025; 85027; 85651; 87040; 93005; 94640; 94760; 94761; 97110; 97530; 97535; 99306; 99309; J0878; J1650; J7512